=== PATIENT | female | born 2000 | race Caucasian/White ===

== ENCOUNTER 2023-03-12 10:57 | Outpatient (OUT) | payer OTHER, SELFPAY | END 2023-03-12 10:58 | disposition home or self-care (01) | PROVIDERS: Visit Provider Obstetrics & Gynecology | DX: N97.9 Female infertility, unspecified (principal) | CPT/HCPCS: 36415; 84144 ==

== ENCOUNTER 2023-04-09 08:34 | Outpatient (OUT) | payer OTHER, SELFPAY ==
[2023-04-10 04:07] LABS: Progesterone 4.3 ng/mL (.)
== END 2023-04-09 08:35 | disposition home or self-care (01) ==
LOC: LAB 08:36
PROVIDERS: PCP Family Medicine; Visit Provider Obstetrics & Gynecology
DX: N97.9 Female infertility, unspecified (principal)
CPT/HCPCS: 36415; 84144